=== PATIENT | female | born 1985 | race Caucasian/White ===

== ENCOUNTER 2024-02-03 12:09 | Inpatient (IN) | payer OTHER ==
[2024-02-03 13:52] VITALS: BMI 29.2
[2024-02-03] MEDS ORDERED: MAG HYDROX/AL HYDROX/SIMETH 30 ML UNIT-DOSE CUP PO PRN (14:02)
[2024-02-03] MEDS ORDERED: LOPERAMIDE HCL 2 MG CAPSULE PO PRN (14:02)
[2024-02-03] MEDS ORDERED: POLYETHYLENE GLYCOL (HEALTHYLAX) 3350 17 GM PACKET PO PRN (14:02)
[2024-02-03] MEDS ORDERED: MAGNESIUM HYDROX 2400MG/30ML ORAL SUSPENSION 30 ML CUP PO PRN (14:02)
[2024-02-03] MEDS ORDERED: BISMUTH SUBSALICYLATE 524 MG/30 ML PO PRN (14:02)
[2024-02-03] MEDS ORDERED: DICYCLOMINE HCL 10 MG CAPSULE PO PRN (14:02)
[2024-02-03] MEDS ORDERED: NALOXONE HCL (KLOXXADO) 8 MG SPRAY NS PRN (14:02)
[2024-02-03] MEDS ORDERED: IBUPROFEN 400 MG TABLET (FP) PO PRN (14:02)
[2024-02-03] MEDS ORDERED: guaiFENesin 600 MG TABLET.ER (FP) PO PRN (14:02)
[2024-02-03] MEDS ORDERED: ACETAMINOPHEN 325 MG TABLET (FP) PO PRN (14:02)
[2024-02-03] MEDS ORDERED: BENZOCAINE/MENTHOL (CHLORASEPTIC ) LOZENGE MM PRN (14:02)
[2024-02-03] MEDS ORDERED: NALOXONE HCL 0.4 MG/ML VIAL IM PRN (14:02)
[2024-02-03] MEDS ORDERED: BENZONATATE 200 MG CAPSULE PO PRN (14:02)
[2024-02-03] MEDS ORDERED: PRENATAL VITAMINS W/ FOLIC ACID TABLET (FP) PO ONE (14:21)
[2024-02-03] MEDS: PRENATAL VITAMINS W/ FOLIC ACID TABLET (FP) PO SCH (14:22)
[2024-02-03] MEDS: hydrOXYzine PAMOATE 25 MG CAPSULE (FP) PO PRN (14:22)
[2024-02-03] MEDS: LORazepam 0.5 MG TABLET PO ONE (14:22)
[2024-02-03] MEDS: ONDANSETRON *ODT* 4 MG TABLET SL PRN (14:22)
[2024-02-03] MEDS: LOSARTAN POTASSIUM 50 MG TABLET PO SCH (15:43)
[2024-02-03] MEDS: LORazepam 2 MG TABLET PO SCH (17:11)
[2024-02-03] MEDS: METHOCARBAMOL 500 MG TABLET PO PRN (17:12)
[2024-02-03] MEDS: IBUPROFEN 600 MG TABLET (FP) PO PRN (22:27)
[2024-02-03] MEDS: MELATONIN 5 MG TABLETS PO SCH (22:28)
[2024-02-03] MEDS: THIAMINE 100 MG TABLET PO SCH (22:29)
[2024-02-04 12:13] LABS: HEMATOCRIT 38.4 % (32.4-45.2); HEMOGLOBIN 12.4 GM/dL (10.7-15.3); MCH 28.8 pg (25.7-33.7); MCHC 32.3 g/dl (32.0-36.0); MEAN CELL VOLUME 89.1 fl (80-96); MEAN PLT VOLUME 7.4 fl (7.5-11.1); PLATELET COUNT 287 10^3/uL (134-434); RBC 4.31 M/mm3 (3.60-5.2); RDW 19.5 % (11.6-15.6); WHITE BLOOD COUNT 6.3 K/mm3 (4.0-10.0)
[2024-02-04 12:16] LABS: CHLORIDE 102 mmol/L (98-107); POTASSIUM 4.2 mmol/L (3.5-5.1); SODIUM 136 mmol/L (136-145)
[2024-02-04 12:18] LABS: CALCIUM 8.8 mg/dL (8.5-10.1)
[2024-02-04 12:19] LABS: ALBUMIN 3.2 g/dl (3.4-5.0); ANION GAP 9 mmol/L (4-13); BLOOD UREA NITROGEN 23.5 mg/dL (7-18); CO2 26 mmol/L (21-32); GLUCOSE,RANDOM 88 mg/dL (74-106)
[2024-02-04 12:21] LABS: SGPT/ALT 18 U/L (13-61)
[2024-02-04 12:22] LABS: CREATININE 0.9 mg/dL (0.55-1.3); SGOT/AST 19 U/L (15-37)
[2024-02-04 12:23] LABS: BILIRUBIN,TOTAL 0.4 mg/dL (0.2-1); TOT PROT 6.2 g/dl (6.4-8.2)
[2024-02-04 12:24] LABS: ALK PHOS 98 U/L (45-117)
[2024-02-04 13:10] LABS: HIV INTERPRETATION NEGATIVE (NEGATIVE)
[2024-02-04] MEDS: LORazepam 1 MG TABLET PO PRN (13:21)
[2024-02-05] MEDS: LORazepam 1 MG TABLET PO SCH (06:00)
[2024-02-05] MEDS: NICOTINE POLACRILEX 4 MG GUM BUC PRN (11:40)
[2024-02-05] MEDS: NICOTINE 21 MG/24 HOURS TOPICAL PATCH TD SCH (11:40)
[2024-02-05] MEDS: cloNIDine HCL 0.1 MG TABLET PO PRN (14:40)
[2024-02-05] MEDS: QUEtiapine FUMARATE 50 MG TABLET PO ONE (14:57)
[2024-02-05] MEDS: QUEtiapine FUMARATE 100 MG TABLET (FP) PO SCH (22:08)
[2024-02-06] MEDS ORDERED: LORazepam 0.5 MG TABLET PO PRN
[2024-02-06] MEDS: LORazepam 0.5 MG TABLET PO SCH (05:44)
[2024-02-06] MEDS: QUEtiapine FUMARATE 50 MG TABLET PO SCH (10:12)
[2024-02-06] MEDS: amLODIPine BESYLATE 10 MG TABLET (FP) PO SCH (10:12)
[2024-02-07] MEDS: LORazepam 0.5 MG TABLET PO ONE (05:21)
[2024-02-07 08:49] VITALS: BP 123/74; PULSE 88; RESP 16; TEMP 97.6
== END 2024-02-07 10:54 | disposition home or self-care (01) | DRG 775 ==
LOC: YASAS 12:09 → Y3N 14:26
PROVIDERS: ADMIT Allergy & Immunology; ATTEND Surgery
PROC: HZ2ZZZZ Detoxification Services for Substance Abuse Treatment (ICD-10-PCS; principal; 2024-02-03)
DX: F10.230 Alcohol dependence with withdrawal, uncomplicated (principal); F17.210 Nicotine dependence, cigarettes, uncomplicated; F41.9 Anxiety disorder, unspecified; G47.00 Insomnia, unspecified; I10 Essential (primary) hypertension; Z86.59 Personal history of other mental and behavioral disorders; Z99.89 Dependence on other enabling machines and devices; Z88.1 Allergy status to other antibiotic agents; Z56.0 Unemployment, unspecified; Z59.00 Homelessness unspecified
CPT/HCPCS: 36415; 80053; 80305; 80307; 81025; 85027; 86780; 87389; 93005; 93010; Q0162

== ENCOUNTER 2024-02-20 21:03 | Inpatient (IN) | payer OTHER ==
[2024-02-20 21:19] VITALS: BMI 29.0
[2024-02-20] MEDS ORDERED: DICYCLOMINE HCL 10 MG CAPSULE PO PRN (23:08)
[2024-02-20] MEDS ORDERED: MAGNESIUM HYDROX 2400MG/30ML ORAL SUSPENSION 30 ML CUP PO PRN (23:08)
[2024-02-20] MEDS ORDERED: NICOTINE POLACRILEX 4 MG GUM BUC PRN (23:08)
[2024-02-20] MEDS ORDERED: ACETAMINOPHEN 325 MG TABLET (FP) PO PRN (23:08)
[2024-02-20] MEDS ORDERED: LOPERAMIDE HCL 2 MG CAPSULE PO PRN (23:08)
[2024-02-20] MEDS ORDERED: MAG HYDROX/AL HYDROX/SIMETH 30 ML UNIT-DOSE CUP PO PRN (23:08)
[2024-02-20] MEDS ORDERED: NALOXONE HCL (KLOXXADO) 8 MG SPRAY NS PRN (23:08)
[2024-02-20] MEDS ORDERED: guaiFENesin 600 MG TABLET.ER (FP) PO PRN (23:08)
[2024-02-20] MEDS ORDERED: IBUPROFEN 400 MG TABLET (FP) PO PRN (23:08)
[2024-02-20] MEDS ORDERED: BISMUTH SUBSALICYLATE 524 MG/30 ML PO PRN (23:08)
[2024-02-20] MEDS ORDERED: BENZOCAINE/MENTHOL (CHLORASEPTIC ) LOZENGE MM PRN (23:08)
[2024-02-20] MEDS ORDERED: NALOXONE HCL 0.4 MG/ML VIAL IM PRN (23:08)
[2024-02-20] MEDS ORDERED: ONDANSETRON *ODT* 4 MG TABLET SL PRN (23:08)
[2024-02-20] MEDS ORDERED: POLYETHYLENE GLYCOL (HEALTHYLAX) 3350 17 GM PACKET PO PRN (23:08)
[2024-02-20] MEDS ORDERED: BENZONATATE 200 MG CAPSULE PO PRN (23:08)
[2024-02-20] MEDS ORDERED: ALBUTEROL SO4 HFA INHALER IH PRN (23:26)
[2024-02-20] MEDS ORDERED: hydrOXYzine PAMOATE 25 MG CAPSULE (FP) PO ONE (23:38)
[2024-02-20] MEDS: hydrOXYzine PAMOATE 25 MG CAPSULE (FP) PO PRN (23:39)
[2024-02-20] MEDS ORDERED: IBUPROFEN 600 MG TABLET (FP) PO ONE (23:39)
[2024-02-20] MEDS: IBUPROFEN 600 MG TABLET (FP) PO PRN (23:39)
[2024-02-21] MEDS: QUEtiapine FUMARATE 50 MG TABLET PO ONE (00:13)
[2024-02-21] MEDS: PRENATAL VITAMINS W/ FOLIC ACID TABLET (FP) PO SCH (10:26)
[2024-02-21] MEDS: diazePAM 5 MG TABLET PO SCH (10:28)
[2024-02-21] MEDS: LOSARTAN POTASSIUM 50 MG TABLET PO SCH (10:28)
[2024-02-21 11:12] LABS: HEMATOCRIT 42.9 % (32.4-45.2); MCH 30.2 pg (25.7-33.7); MCHC 32.5 g/dl (32.0-36.0); MEAN CELL VOLUME 92.8 fl (80-96); MEAN PLT VOLUME 8.3 fl (7.5-11.1); PLATELET COUNT 230 10^3/uL (134-434); RBC 4.63 M/mm3 (3.60-5.2); WHITE BLOOD COUNT 8.8 K/mm3 (4.0-10.0)
[2024-02-21 11:18] LABS: POTASSIUM 4.5 mmol/L (3.5-5.1)
[2024-02-21 11:20] LABS: ALBUMIN 3.5 g/dl (3.4-5.0); CALCIUM 8.7 mg/dL (8.5-10.1)
[2024-02-21 11:23] LABS: CREATININE 1.1 mg/dL (0.55-1.3)
[2024-02-21 11:25] LABS: BILIRUBIN,TOTAL 0.3 mg/dL (0.2-1); TOT PROT 6.8 g/dl (6.4-8.2)
[2024-02-21] MEDS: QUEtiapine FUMARATE 25 MG TABLET PO SCH (14:10)
[2024-02-21] MEDS: THIAMINE 100 MG TABLET PO SCH (23:00)
[2024-02-21] MEDS: MELATONIN 5 MG TABLETS PO SCH (23:00)
[2024-02-21] MEDS: QUEtiapine FUMARATE 100 MG TABLET (FP) PO SCH (23:00)
[2024-02-21] MEDS: METHOCARBAMOL 500 MG TABLET PO PRN (23:02)
[2024-02-22] MEDS: diazePAM 5 MG TABLET PO SCH (05:26)
[2024-02-22] MEDS: diazePAM 5 MG TABLET PO PRN (09:39)
[2024-02-22] MEDS: NALTREXONE HCL 50 MG TABLET PO SCH (10:22)
[2024-02-22] MEDS: amLODIPine BESYLATE 2.5 MG TABLET (FP) PO SCH (10:22)
[2024-02-23] MEDS: diazePAM 5 MG TABLET PO SCH (05:33)
[2024-02-24] MEDS: diazePAM 5 MG TABLET PO ONE ×2 (05:30→14:26)
[2024-02-25 12:14] VITALS: BP 128/78; PULSE 75; RESP 16; TEMP 97.6
== END 2024-02-25 12:56 | disposition other institution (70) | DRG 775 ==
LOC: YASAS 21:03 → Y6N 23:37
PROVIDERS: ADMIT Allergy & Immunology; ATTEND Surgery
PROC: HZ2ZZZZ Detoxification Services for Substance Abuse Treatment (ICD-10-PCS; principal; 2024-02-20)
DX: F10.230 Alcohol dependence with withdrawal, uncomplicated (principal); F19.24 Other psychoactive substance dependence with psychoactive substance-induced mood disorder; F41.9 Anxiety disorder, unspecified; F41.0 Panic disorder [episodic paroxysmal anxiety]; I10 Essential (primary) hypertension; J45.20 Mild intermittent asthma, uncomplicated; Z72.0 Tobacco use; Z86.59 Personal history of other mental and behavioral disorders; Z56.0 Unemployment, unspecified; Z88.1 Allergy status to other antibiotic agents
CPT/HCPCS: 36415; 71045-TC-FY; 80053; 80307; 81003; 81025; 83690; 84484; 84703; 85025; 85027; 86780; 87086; 87811; 93005; 93010

== ENCOUNTER 2024-02-25 13:10 | Inpatient (IN) | payer OTHER ==
[2024-02-25] MEDS ORDERED: BENZOCAINE/MENTHOL (CHLORASEPTIC ) LOZENGE MM PRN (15:40)
[2024-02-25] MEDS ORDERED: MAG HYDROX/AL HYDROX/SIMETH 30 ML UNIT-DOSE CUP PO PRN (15:40)
[2024-02-25] MEDS ORDERED: POLYETHYLENE GLYCOL (HEALTHYLAX) 3350 17 GM PACKET PO PRN (15:40)
[2024-02-25] MEDS ORDERED: MAGNESIUM HYDROX 2400MG/30ML ORAL SUSPENSION 30 ML CUP PO PRN (15:40)
[2024-02-25] MEDS ORDERED: guaiFENesin 600 MG TABLET.ER (FP) PO PRN (15:40)
[2024-02-25] MEDS ORDERED: BENZONATATE 200 MG CAPSULE PO PRN (15:40)
[2024-02-25] MEDS ORDERED: LOPERAMIDE HCL 2 MG CAPSULE PO PRN (15:40)
[2024-02-25] MEDS: QUEtiapine FUMARATE 50 MG TABLET PO SCH (17:41)
[2024-02-25] MEDS: hydrOXYzine PAMOATE 25 MG CAPSULE (FP) PO PRN ×2 (17:42→21:15)
[2024-02-25] MEDS: MELATONIN 5 MG TABLETS PO SCH (21:15)
[2024-02-25] MEDS: QUEtiapine FUMARATE 100 MG TABLET (FP) PO SCH (21:15)
[2024-02-25] MEDS: THIAMINE 100 MG TABLET PO SCH (21:15)
[2024-02-26] MEDS: NICOTINE 14 MG/24 HOURS TOPICAL PATCH TD SCH (10:06)
[2024-02-26] MEDS: amLODIPine BESYLATE 2.5 MG TABLET (FP) PO SCH (10:06)
[2024-02-26] MEDS: NALTREXONE HCL 50 MG TABLET PO SCH (10:06)
[2024-02-26] MEDS: LOSARTAN POTASSIUM 50 MG TABLET PO SCH (10:06)
[2024-02-26] MEDS: PRENATAL VITAMINS W/ FOLIC ACID TABLET (FP) PO SCH (10:06)
[2024-02-26] MEDS: TUBERCULIN PPD 5 TU/0.1ML VIAL ID ONE (15:55)
[2024-02-26] MEDS ORDERED: TUBERCULIN PPD 5 TU/0.1ML VIAL ID ONE (16:21)
[2024-02-26] MEDS: IBUPROFEN 600 MG TABLET (FP) PO PRN (17:11)
[2024-02-28] MEDS: IBUPROFEN 400 MG TABLET (FP) PO PRN (07:35)
[2024-02-29] MEDS: ACETAMINOPHEN 325 MG TABLET (FP) PO PRN (10:11)
[2024-02-29] MEDS ORDERED: NICOTINE 14 MG/24 HOURS TOPICAL PATCH TD SCH (10:18)
[2024-02-29] MEDS: QUEtiapine FUMARATE 50 MG TABLET PO SCH (13:42)
[2024-02-29] MEDS: METHOCARBAMOL 500 MG TABLET PO PRN (16:39)
[2024-03-01] MEDS: NICOTINE 21 MG/24 HOURS TOPICAL PATCH TD SCH (09:16)
[2024-03-02] MEDS: hydrOXYzine PAMOATE 50 MG CAPSULE (FP) PO PRN (21:32)
[2024-03-02] MEDS ORDERED: GABAPENTIN 100 MG CAPSULE PO SCH (22:00)
[2024-03-02] MEDS: GABAPENTIN 100 MG CAPSULE PO SCH (22:50)
[2024-03-03] MEDS: NICOTINE POLACRILEX 2 MG GUM BUC PRN (09:59)
[2024-03-03] MEDS: GABAPENTIN 100 MG CAPSULE PO SCH (21:33)
[2024-03-04] MEDS: hydrOXYzine PAMOATE 50 MG CAPSULE (FP) PO PRN (17:12)
[2024-03-07] MEDS: GABAPENTIN 300 MG CAPSULE PO SCH (22:38)
[2024-03-10] MEDS: NICOTINE POLACRILEX 2 MG LOZENGE BC PRN (19:11)
[2024-03-13] MEDS ORDERED: QUEtiapine FUMARATE 25 MG TABLET ONE (17:59)
[2024-03-14] MEDS ORDERED: QUEtiapine FUMARATE 25 MG TABLET ONE (08:55)
[2024-03-15] MEDS: GABAPENTIN 400 MG CAPSULE PO SCH (13:21)
[2024-03-15] MEDS: ALBUTEROL SO4 HFA INHALER IH PRN (15:27)
[2024-03-16 07:01] VITALS: RESP 18
[2024-03-17 06:41] VITALS: TEMP 97.1
[2024-03-17 11:11] VITALS: BP 127/75; PULSE 103
== END 2024-03-17 10:00 | disposition other institution (70) | DRG 772 ==
LOC: YASAS 13:10 → Y5N 13:12
PROVIDERS: ADMIT Allergy & Immunology; ATTEND Psychiatry & Neurology Pain Medicine
PROC: HZ42ZZZ Group Counseling for Substance Abuse Treatment, Cognitive-Behavioral (ICD-10-PCS; principal; 2024-02-25)
DX: F10.20 Alcohol dependence, uncomplicated (principal); F41.9 Anxiety disorder, unspecified; F41.0 Panic disorder [episodic paroxysmal anxiety]; F90.9 Attention-deficit hyperactivity disorder, unspecified type; I10 Essential (primary) hypertension; J45.20 Mild intermittent asthma, uncomplicated; Z72.0 Tobacco use; Z86.59 Personal history of other mental and behavioral disorders; Z88.1 Allergy status to other antibiotic agents
CPT/HCPCS: 80305; 82140; 93005; 93010